=== PATIENT | female | born 1985 | race Caucasian/White ===

== ENCOUNTER 2018-12-09 16:32 | Emergency (ER) | payer BC, OTHER ==
[~2018-12-09] VITALS: Ht 160 cm; Wt 54.4 kg
[2018-12-09 16:35] VITALS: BP 142/96
--- NOTE | 2018-12-09 16:41 | NUR ---
PT BIBA ALS, AMBULATED TO BED 3
--- NOTE | 2018-12-09 17:00 | NUR ---
PT BIBA C/O GENERAL ABD PAIN 10/10 BURNING, NONRADIATING WORSENING OVER TWO WEEKS. +N/V/D. UNABLE TO KEEP FOOD DOWN FOR 2 WEEKS. URINE OBTAINED. PT STATES " I HAVNT BEEN ABLE TO SEE MY GASTRO IN 2 MONTHS AND IT HAS BEEN GETTING SO BAD". PT REPORTS N/V/D. RR EVEN AND UNLABORED, PT SEEMS ANXIOUS AND CRYING. ER MD MADE AWARE. SAFETY PRECAUTIONS IN PLACE. PT. REPORTS " THEIR HAS BEEN A LITTLE BLOOD IN MY STOOL". MOTHER IS AT BEDSIDE. GIVEN FENTANYL AND ZOFRAN EN ROUTE BY ALS CREW. SAFETY PRECAUTIONS IN PLACE. HX--CHROHNS/COLITIS, DEPRESSION/ANXIETY
[2018-12-09] MEDS ORDERED: NACL 0.9% 1,000 ML IV SCH (17:20)
[2018-12-09] MEDS ORDERED: MORPHINE SULFATE 4 MG/ML SYR IVP ONE (17:20)
[2018-12-09] MEDS ORDERED: ONDANSETRON 4 MG/2 ML VIAL IVP ONE (17:20)
[2018-12-09 17:33] LABS: APPEARANCE,URINE CLEAR (CLEAR); BILIRUBIN,URINE NEGATIVE (NEGATIVE); BLOOD, URINE TRACE-I (NEGATIVE); COLOR,URINE YELLOW (YELLOW); LEUKOCYTE ESTERASE ,URINE NEGATIVE (NEGATIVE); NITRITE, URINE NEGATIVE (NEGATIVE); UGLUCOSE NEGATIVE (NEGATIVE)
[2018-12-09 17:36] LABS: RBC,URINE 0-5 (RARE) /HPF (0-5); WBC,URINE 0-5 (RARE) /HPF (0-5)
[2018-12-09 17:48] LABS: BASOPHILS # (AUTO) 0.1 K/uL (0.00-0.22); BASOPHILS % (AUTO) 1.9 % (0.0-2.0); EOSINOPHILS # (AUTO) 0.1 K/uL (0-0.4); EOSINOPHILS % (AUTO) 1.3 % (0.0-4.0); HEMATOCRIT 42.2 % (36-48); HEMOGLOBIN 13.8 g/dL (12.0-16.0); LYMPHOCYTES # (AUTO) 1.2 K/uL (2.5-16.5); LYMPHOCYTES % (AUTO) 19.2 % (20.5-51.1); MEAN CORPUSCULAR HEMOGLOBIN 31 pg (27-31); MEAN CORPUSCULAR HGB CONC 33 g/dL (33-37); MEAN CORPUSCULAR VOLUME 93.2 fL (80-94); MONOCYTES # (AUTO) 0.1 K/uL (0.8-1.0); MONOCYTES % (AUTO) 1.7 % (1.7-9.3); NEUTROPHILS # (AUTO) 4.7 K/uL (1.8-7.7); NEUTROPHILS % (AUTO) 75.9 % (42.2-75.2); PLATELET COUNT (AUTO) 340 K/uL (140-450); RED BLOOD CELL COUNT(AUTO) 4.53 MIL/uL (4.20-5.40); RED CELL DISTRIBUTION WIDTH 13.8 % (11.6-13.7); WHITE BLOOD COUNT (AUTO) 6.1 K/uL (4.8-10.8)
--- NOTE | 2018-12-09 17:53 | NUR ---
PT. TAKEN TO CT SCAN VIA WHEELCHAIR AT THIS TIME
[2018-12-09 18:08] LABS: ALBUMIN 4.1 g/dL (3.4-5.0); ANION GAP 12.9 (8-16); CARBON DIOXIDE 27.6 mmol/L (21-32); CREATININE 0.6 mg/dL (0.6-1.3); POTASSIUM 3.5 mmol/L (3.5-5.1); TOTAL BILIRUBIN 0.4 mg/dL (0.0-1.0)
--- NOTE | 2018-12-09 18:16 | NUR ---
PT. STATES " THE MORPHINE DIDNT HELP ME WITH MY PAIN AT ALL, CAN I HAVE SOMETHING ELSE FOR PAIN ?" PT. ABLE TO SPEAK IN FULL AND COMPLETE SENTENCES, FLUSHED CHEEKS AND RELAXED TONE WITH SLIGHT FACIAL GRIMACING NOTED. ER MD BARON MADE AWARE.MD TO SEE PATIENT
[2018-12-09] MEDS ORDERED: fentaNYL 0.05 MG/ML VIAL IVP ONE (18:45)
--- NOTE | 2018-12-09 19:16 | NUR ---
Pt report given to SONAM KEITH . Transfer of care at this time.
[2018-12-09 19:56] VITALS: BP 128/82
--- NOTE | 2018-12-09 19:56 | NUR ---
Patient discharged with v/s stable. Written and verbal after care instructions given and explained. Patient alert, oriented and verbalized understanding of instructions. Ambulatory with steady gait. All questions addressed prior to discharge. ID band removed. Patient advised to follow up with PMD. Rx of reglan and sulfasalazine was given. Patient educated on indication of medication including possible reaction and side effects. Opportunity to ask questions provided and answered.
== END 2018-12-09 19:56 | disposition home or self-care (01) ==
LOC: MED 16:32
DX: R10.9 Unspecified abdominal pain (principal); F41.9 Anxiety disorder, unspecified; K50.90 Crohn's disease, unspecified, without complications
CPT/HCPCS: 36415; 74176; 80053; 81001; 81002; 81025; 83605; 83690; 85025; 87040; 96361; 96374; 96375; 99284; J2270; J2405; J3010; J7030

== ENCOUNTER 2021-09-28 17:50 | Emergency (ER) | payer BC, OTHER ==
[~2021-09-28] VITALS: Ht 162.6 cm; Wt 56.3 kg
[2021-09-28 18:12] VITALS: BP 130/90
--- NOTE | 2021-09-28 18:51 | NUR ---
urine in dirty utility
--- NOTE | 2021-09-28 19:15 | NUR ---
RECIEVED SHIFT REPORT FROM DAY SHIFT RN. PT LYING IN BED WITH EYES OPENED. REPORTS PAIN 7/10. ALL VS ARE STABLE AT THIS TIME. MD AT BEDSIDE. WILL CONTINUE TO MONITOR.
--- NOTE | 2021-09-28 19:16 | NUR ---
PT REPORTS HX OF 2 BACK SX, SPINAL STENOSIS, OSTEOPOROSIS, CHRONS, COLITIS, ADDISONS, HYPOTHYROID. PT STATES THAT SHE IS UNDER THE DIRECT CARE OF A ONCOLOGIST TO RULE OUT CANCER. PT REPORTS HX OF BLOOD CLOTS, PULMONARY EMBOLISM. PT REPORTS THAT TODAY SHE IS FEELING CHEST PAIN, N/V/D, REPORTS S/S HAS BEEN PRESENT X2 MONTHS WITH NO RELIEF. PT STATES THAT MORPHINE MAKES HER SICK TO HER STOMACH AND REQUESTED THAT THE MD GIVES HER PROMETHAZINE AND DILAUDID. PT STATES THAT "I USUALLY DON'T ASK THE DOCTOR FOR A SPECIFIC PRESCRIPTION BUT I REALLY WANT DILAUDID AND PROMETHAZINE FOR MY NAUSEA". PT REPORTS THAT SHE DOES SEE A PAIN SPECIALIST FOR "PAIN INJECTIONS" AND DENIES TAKING ANY PAIN MEDS AT HOME.
--- NOTE | 2021-09-28 19:19 | NUR ---
Dr. Beck is evaluating patient at bedside
[2021-09-28] MEDS: ONDANSETRON 4 MG/2 ML VIAL IVP ONE (19:45)
[2021-09-28] MEDS: HYDROmorphone PFS 2 MG/ML SYR IVP ONE ×3 (20:06→22:52)
[2021-09-28 20:25] LABS: BASOPHILS % (AUTO) 0.4 % (0.0-2.0); EOSINOPHILS % (AUTO) 0.2 % (0.0-4.0); HEMATOCRIT 28.9 % (36-48); HEMOGLOBIN 9.4 g/dL (12.0-16.0); LYMPHOCYTES # (AUTO) 1.6 K/uL (2.5-16.5); LYMPHOCYTES % (AUTO) 36.8 % (20.5-51.1); MEAN CORPUSCULAR HEMOGLOBIN 26 pg (27-31); MEAN CORPUSCULAR HGB CONC 33 g/dL (33-37); MEAN CORPUSCULAR VOLUME 80.5 fL (80-94); MONOCYTES # (AUTO) 0.3 K/uL (0.8-1.0); MONOCYTES % (AUTO) 5.9 % (1.7-9.3); NEUTROPHILS # (AUTO) 2.5 K/uL (1.8-7.7); NEUTROPHILS % (AUTO) 56.7 % (42.2-75.2); PLATELET COUNT (AUTO) 338 K/uL (140-450); RED BLOOD CELL COUNT(AUTO) 3.59 MIL/uL (4.20-5.40); RED CELL DISTRIBUTION WIDTH 17.9 % (11.6-13.7); WHITE BLOOD COUNT (AUTO) 4.4 K/uL (4.8-10.8)
[2021-09-28 20:44] LABS: MAGNESIUM 2.4 mg/dL (1.8-2.4); PHOSPHORUS 3.4 mg/dL (2.5-4.9)
--- NOTE | 2021-09-28 20:46 | NUR ---
PT REPORTS THAT HER NAUSEA IS STILL PRESENT. DENIES ANY VOMITING. PT STATES THAT "ZOFRAN IS NOT WORKING FOR ME". RN INQUIRED ABOUT PREVIOUS TREATMENTS THAT WORKED FOR N/V, PT REPLIED "PLEASE JUST GIVE ME PROMETHAZINE, IT IS THE ONLY THING THAT WORKS FOR ME". PT STATES "I ALSO NEED MORE PAIN MEDICATION, I AM STARTING TO FEEL MY PAIN AGAIN". MD NOTIFIED.
[2021-09-28 20:57] LABS: APPEARANCE,URINE CLEAR (CLEAR); BILIRUBIN,URINE NEGATIVE (NEGATIVE); BLOOD, URINE NEGATIVE (NEGATIVE); COLOR,URINE YELLOW (YELLOW); LEUKOCYTE ESTERASE ,URINE NEGATIVE (NEGATIVE); NITRITE, URINE NEGATIVE (NEGATIVE); UGLUCOSE NEGATIVE (NEGATIVE)
[2021-09-28] MEDS: PROMETHAZINE 25 MG/ML VIAL IVP ONE (20:59)
[2021-09-28 21:01] LABS: ALBUMIN 3.8 g/dL (3.4-5.0); ANION GAP 11.3 (8-16); CREATININE 0.6 mg/dL (0.6-1.3); POTASSIUM 3.3 mmol/L (3.5-5.1); TOTAL BILIRUBIN 0.3 mg/dL (0.0-1.0)
--- NOTE | 2021-09-28 21:01 | NUR ---
PT TO RADIOLOGY VIA WHEELCHAIR TRASPORTED BY FILM OR TAPE LIBRARIAN.
--- NOTE | 2021-09-28 21:01 | NUR ---
PT MEDICATED PER MD ORDERS.
--- NOTE | 2021-09-28 21:12 | NUR ---
PT RETURN FROM RADIOLOGY
[2021-09-28] MEDS: POTASSIUM CHLORIDE 10 MEQ TABER PO ONE (21:15)
--- NOTE | 2021-09-28 21:28 | NUR ---
PT BACK IN ROOM. HOOKED UP TO MONITORS.
[2021-09-28] MEDS ORDERED: ONDA-188 PO (21:43)
[2021-09-28] MEDS: NACL 0.9% 1,000 ML IV ONE (22:00)
[2021-09-28] MEDS ORDERED: POTASSIUM CHLORIDE 10 MEQ TABER PO ONE ×2 (22:47→22:49)
--- NOTE | 2021-09-28 22:58 | NUR ---
RN TO PT ROOM TO ADMINISTER K+ PO. PT TOOK ONE PILL AND REFUSED THE OTHER PILL DUE TO HER EXPERIENCING THROAT IRRITATION. PT STATES SHE WILL TAKE PO K+ AT HOME.
[2021-09-28 23:16] VITALS: BP 135/77
--- NOTE | 2021-09-28 23:21 | NUR ---
Patient discharged with v/s stable. Written and verbal after care instructions given and explained. Patient alert, oriented and verbalized understanding of instructions. Ambulatory with steady gait. All questions addressed prior to discharge. ID band removed. Patient advised to follow up with PMD. Rx of zofran given. Patient educated on indication of medication including possible reaction and side effects. Opportunity to ask questions provided and answered. pt instructed not to drive, RN escorted pt to car, drove pt home.
== END 2021-09-28 23:21 | disposition home or self-care (01) ==
LOC: MED 17:50
DX: R11.10 Vomiting, unspecified (principal); R19.7 Diarrhea, unspecified; R10.11 Right upper quadrant pain; E07.9 Disorder of thyroid, unspecified; Z98.890 Other specified postprocedural states; Z79.899 Other long term (current) drug therapy
CPT/HCPCS: 36415; 74021; 80053; 81003; 81025; 83735; 84100; 85025; 85610; 85730; 86886; 86900; 86901; 93005; 96361; 96374; 96375; 96376; 99285; J1170; J2405; J2550; J7030

== ENCOUNTER 2022-05-08 11:53 | Emergency (ER) | payer BC, OTHER ==
[~2022-05-08] VITALS: Ht 162.6 cm; Wt 56.7 kg
[~2022-05-08 11:53] MED LIST: ONDA-188 PO
[2022-05-08 12:00] VITALS: BP 134/83
--- NOTE | 2022-05-08 12:00 | NUR ---
36 Y/O FEMALE BIB SELF C/O OF PAIN, REDNESS AND AND WARMTH ON LEFT PERMACATH AREA. PER PT PERMACATH WAS PLACED IN A CLINIC ON 05/03/22 PREVIOUS PERMACATH ON THE RIGHT WAS INFECTED WITH ENTEROCOCCUS. PT IS RECEIVING ORAL CHEMO MERCAPTOPURINE AND REMICAIDE INFUSIONS. LAST INFUSION OF REMICAIDE 1 1/2 MONTHS AGO. PERMACATH HAS NOT BEEN USED. PT STATES FEVER AT HOME YESTERDAY 100.1, TEMP IN TRIAGE 98.1. ALLERGY: LYRICA, NSAIDS PMH: ADDISONS, CHRONS, HYPOTHYROID, OSTEOPOROSIS, ANKYLOSING SPONDYLOSIS
--- NOTE | 2022-05-08 12:35 | NUR ---
DR BARON AT BEDSIDE FOR EVAL
[2022-05-08] MEDS ORDERED: MORPHINE SULFATE 2 MG/ML SYR IVP ONE ×2 (12:50→16:20)
[2022-05-08] MEDS ORDERED: NACL 0.9% 1,000 ML IV SCH (12:50)
[2022-05-08] MEDS ORDERED: ONDANSETRON 4 MG/2 ML VIAL IVP ONE (12:50)
--- NOTE | 2022-05-08 13:19 | NUR ---
XRAY AT BEDSIDE
[2022-05-08 13:26] LABS: BASOPHILS % (AUTO) 0.3 % (0.0-2.0); EOSINOPHILS % (AUTO) 0.2 % (0.0-4.0); HEMATOCRIT 28.1 % (36-48); LYMPHOCYTES # (AUTO) 0.8 K/uL (2.5-16.5); LYMPHOCYTES % (AUTO) 23.6 % (20.5-51.1); MEAN CORPUSCULAR HEMOGLOBIN 25 pg (27-31); MEAN CORPUSCULAR HGB CONC 32 g/dL (33-37); MEAN CORPUSCULAR VOLUME 76.6 fL (80-94); MONOCYTES # (AUTO) 0.2 K/uL (0.8-1.0); MONOCYTES % (AUTO) 7.2 % (1.7-9.3); NEUTROPHILS # (AUTO) 2.3 K/uL (1.8-7.7); NEUTROPHILS % (AUTO) 68.7 % (42.2-75.2); PLATELET COUNT (AUTO) 278 K/uL (140-450); RED BLOOD CELL COUNT(AUTO) 3.67 MIL/uL (4.20-5.40); WHITE BLOOD COUNT (AUTO) 3.3 K/uL (4.8-10.8)
[2022-05-08] MEDS ORDERED: diphenhydrAMINE 50 MG/ML VIAL IVP ONE ×3 (13:45→20:40)
[2022-05-08 13:51] LABS: ALBUMIN 3.6 g/dL (3.4-5.0); ANION GAP 12.9 (8-16); CREATININE 0.6 mg/dL (0.6-1.3); POTASSIUM 3.9 mmol/L (3.5-5.1); TOTAL BILIRUBIN 0.2 mg/dL (0.0-1.0)
[2022-05-08 13:59] LABS: PROTHROMBIN TIME 10.2 secs (10.8-13.4)
[2022-05-08] MEDS ORDERED: PIPERACILLIN/TAZOBACTAM 3.375 GM in DEXTROSE 5% 50 ML IV ONE (14:15)
[2022-05-08 14:25] LABS: APPEARANCE,URINE CLEAR (CLEAR); BILIRUBIN,URINE NEGATIVE (NEGATIVE); BLOOD, URINE 3+ (NEGATIVE); COLOR,URINE YELLOW (YELLOW); LEUKOCYTE ESTERASE ,URINE NEGATIVE (NEGATIVE); NITRITE, URINE NEGATIVE (NEGATIVE); PH,URINE 6.5 (5.0-9.0); UGLUCOSE NEGATIVE (NEGATIVE)
[2022-05-08] MEDS ORDERED: MORPHINE SULFATE 4 MG/ML SYR IVP ONE ×2 (14:30→22:30)
[2022-05-08] MEDS ORDERED: PIPERACILLIN/TAZOBACTAM 3.375 GM VIAL IV ONE (14:42)
[2022-05-08 14:43] LABS: OTHER CASTS, URINE None Seen /LPF (None Seen); RBC,URINE 11-20 (MOD) /HPF (0-5); WBC,URINE 0-5 /HPF (0-5)
--- NOTE | 2022-05-08 15:26 | NUR ---
SWABS HANDED TO FERNANDA SORTING MACHINE OPERATOR
--- NOTE | 2022-05-08 15:36 | NUR ---
SPOKE TO [facility], NUMBER [phone] AND FAX NUMBER [phone] REGARDING PT CLINICALS, REFAXXED CLINICALS
[2022-05-08] MEDS ORDERED: MERC50TA PO (17:27)
[2022-05-08] MEDS ORDERED: DIAZ5TAB13 PO (17:27)
[2022-05-08] MEDS ORDERED: APIX5TAB PO (17:27)
[2022-05-08] MEDS ORDERED: HYDR20TA PO (18:54)
--- NOTE | 2022-05-08 18:54 | NUR ---
INFORMED DR VALLEJO OF PT CONTINUED PAIN EVEN WITH MORPHINE, PT REQUESTING DILAUDID IVP
--- NOTE | 2022-05-08 19:17 | NUR ---
Pt report given to ROCKY MASTERS. Transfer of care at this time.
--- NOTE | 2022-05-08 19:30 | NUR ---
RECEIVED PT AWAKE, ALERT, AND VERY TEARFUL. C/O ONGOING PAIN, PRIMARILY TO LEFT UPPER CHEST AT LAURA-CATH SITE. PT STATES LONG MEDICAL HISTORY. PAIN IS RATED 10/10.
[2022-05-08] MEDS ORDERED: HYDROmorphone PFS 2 MG/ML SYR IM ONE (19:45)
--- NOTE | 2022-05-08 22:20 | NUR ---
SPOKE WITH TALENT ADVISOR. PT APPROVED FOR TRANSFER/ ADMISSION TO [facility]. PT NOT WANTING TO TRANSFER HERE, AND WILL BE CONSIDERING SIGNING AMA
[2022-05-08 23:07] VITALS: BP 128/78
--- NOTE | 2022-05-08 23:07 | NUR ---
PT IS NOT ACCEPTING OF TRANSFER. SIGNED OUT AMA. RISKS EXPLAINED, PT EXPRESSES UNDERSTANDING
== END 2022-05-08 23:07 | disposition home or self-care (01) ==
LOC: MED 11:53
DX: K50.90 Crohn's disease, unspecified, without complications (principal); Z20.822 Contact with and (suspected) exposure to COVID-19; M45.9 Ankylosing spondylitis of unspecified sites in spine; E03.9 Hypothyroidism, unspecified; M81.0 Age-related osteoporosis without current pathological fracture; E27.1 Primary adrenocortical insufficiency; K21.9 Gastro-esophageal reflux disease without esophagitis; Z79.899 Other long term (current) drug therapy; Z88.8 Allergy status to other drugs, medicaments and biological substances; Z98.890 Other specified postprocedural states; Z85.9 Personal history of malignant neoplasm, unspecified
CPT/HCPCS: 36415; 71045; 80053; 81001; 81025; 83605; 85025; 85610; 85730; 87040; 87086; 87426; 93005; 96361; 96365; 96372; 96375; 96376; 99285; J1170; J1200; J2270; J2405; J2543; J7030; Q0092

== ENCOUNTER 2022-09-06 17:24 | Emergency (ER) | payer BC, OTHER ==
[~2022-09-06] VITALS: Ht 162.6 cm; Wt 58.1 kg
[~2022-09-06 17:24] MED LIST changes: +APIX5TAB PO; +DIAZ5TAB13 PO; +HYDR20TA PO; +MERC50TA PO
[2022-09-06 17:32] VITALS: BP 125/96
--- NOTE | 2022-09-06 18:08 | NUR ---
37 Y/O FEMALE BIB SELF C/O NAUSEA, ITCHINESS, HEADACHE, [id number], PER PT SHE HAD "AN INCREASED AMOUNT OF CHEMO YESTERDAY AT 0900H", STATES THAT HER BP REACHED 70 SYSTOLIC AT HOME. PORTACATH AT THE LEFT UPPER CHEST, PER PT INSERTED YESTERDAY. ALLERGY: NSAIDS, PREGABALIN PMH: ADDISONS, CHRONS, HYPOTHYROID, OSTEOPOROSIS, ANKYLOSING SPONDYLOSIS
[2022-09-06 18:12] LABS: BASOPHILS % (AUTO) 0.5 % (0.0-2.0); EOSINOPHILS # (AUTO) 0.3 K/uL (0-0.4); EOSINOPHILS % (AUTO) 5.6 % (0.0-4.0); HEMATOCRIT 31.8 % (36-48); HEMOGLOBIN 10.4 g/dL (12.0-16.0); LYMPHOCYTES # (AUTO) 1.8 K/uL (2.5-16.5); LYMPHOCYTES % (AUTO) 38.4 % (20.5-51.1); MEAN CORPUSCULAR HEMOGLOBIN 25 pg (27-31); MEAN CORPUSCULAR HGB CONC 33 g/dL (33-37); MEAN CORPUSCULAR VOLUME 76.6 fL (80-94); MONOCYTES # (AUTO) 0.4 K/uL (0.8-1.0); MONOCYTES % (AUTO) 7.4 % (1.7-9.3); NEUTROPHILS # (AUTO) 2.3 K/uL (1.8-7.7); NEUTROPHILS % (AUTO) 48.1 % (42.2-75.2); PLATELET COUNT (AUTO) 327 K/uL (140-450); RED BLOOD CELL COUNT(AUTO) 4.15 MIL/uL (4.20-5.40); RED CELL DISTRIBUTION WIDTH 22.8 % (11.6-13.7); WHITE BLOOD COUNT (AUTO) 4.8 K/uL (4.8-10.8)
[2022-09-06] MEDS ORDERED: MORPHINE SULFATE 4 MG/ML SYR IVP ONE (18:15)
[2022-09-06 18:25] LABS: ALBUMIN 3.6 g/dL (3.4-5.0); ANION GAP 11.2 (8-16); CARBON DIOXIDE 25.2 mmol/L (21-32); CREATININE 0.6 mg/dL (0.6-1.3); POTASSIUM 4.4 mmol/L (3.5-5.1); TOTAL BILIRUBIN 0.2 mg/dL (0.0-1.0)
[2022-09-06] MEDS ORDERED: HYDROmorphone PFS 2 MG/ML SYR IVP ONE ×2 (18:35→23:00)
[2022-09-06] MEDS ORDERED: diphenhydrAMINE 50 MG/ML VIAL IVP ONE (18:50)
[2022-09-06] MEDS ORDERED: NACL 0.9% 1,000 ML IV ONE (18:55)
--- NOTE | 2022-09-06 19:17 | NUR ---
Pt report given to ANITRA MASTERS. Transfer of care at this time.
--- NOTE | 2022-09-06 19:30 | NUR ---
ASSUMED CARE OF PT AT THIS TIME. PT IN POSITION OF COMFORT. REQUESTING NAUSEA MEDICATION. DR. CHATMAN AT BEDSIDE TO DISCUSS FURTHER POC. PT WANTING TO WAIT FOR CT SCAN HERE CT SCAN DOWN UNTIL 2300. WILL FOLLOW THROUGH WITH ANY FURTHER ORDERS. WILL CONTINUE TO MONITOR.
--- NOTE | 2022-09-06 19:48 | NUR ---
per paulino murrieta, pt can wait until [address] with angio, when ct comes back up. pt is aware and is ok with waiting.
--- NOTE | 2022-09-06 20:08 | NUR ---
PATIENT STATED SHE WAS FEELING NAUSEATED. NO EPISODE OF VOMIT. ERMD AWARE.
[2022-09-06] MEDS ORDERED: PROCHLORPERAZINE 10 MG/2 ML VIAL IVP ONE (20:15)
--- NOTE | 2022-09-06 20:30 | NUR ---
PT UP AND AMBULATES TO RESTROOM. URINE PROVIDED AND SENT. PT REQUESTING PAIN MEDICATION. ERMD AWARE.
[2022-09-06 21:05] LABS: APPEARANCE,URINE SL CLOUDY (CLEAR); BILIRUBIN,URINE NEGATIVE (NEGATIVE); BLOOD, URINE 3+ (NEGATIVE); COLOR,URINE YELLOW (YELLOW); LEUKOCYTE ESTERASE ,URINE NEGATIVE (NEGATIVE); NITRITE, URINE NEGATIVE (NEGATIVE); UGLUCOSE NEGATIVE (NEGATIVE)
[2022-09-06 21:21] LABS: RBC,URINE 0-5 /HPF (0-5); WBC,URINE 0-5 /HPF (0-5)
[2022-09-06 21:24] LABS: BARBITURATE, URINE NEGATIVE ng/ml (NEG <=200); BENZODIAZEPINE, URINE POSITIVE ng/mL (NEG <=200); CANNABINOID, URINE NEGATIVE ng/mL (NEG <=50); COCAINE, URINE NEGATIVE ng/mL (NEG <=300); OPIATE, URINE POSITIVE ng/mL (NEG <=2000); PHENCYCLIDINE SCREEN,URINE NEGATIVE ng/mL (NEG <=25)
--- NOTE | 2022-09-06 22:25 | NUR ---
PT REQUESTING PAIN MEDICATION. UPDATED PT ON POC WITH FULL RETURNED VERBAL UNDERSTANDING. AWAITING ARRIVING DOCTOR FOR ORDERS.
--- NOTE | 2022-09-06 22:25 | NUR ---
pt to ct via quan
--- NOTE | 2022-09-06 23:00 | NUR ---
Britney knutson in EDM - 09/07/22 at 0038 by [id number] PT REQUESTING PAIN MEDICATION. UPDATED PT ON POC WITH FULL RETURNED VERBAL UNDERSTANDING. AWAITING ARRIVING DOCTOR FOR ORDERS.
--- NOTE | 2022-09-07 00:39 | NUR ---
AWAITING RESULTS. PT AWARE. WILL CONTINUE TO MONITOR PAIN/COMFORT.
[2022-09-07] MEDS ORDERED: TAM75 PO (01:43)
[2022-09-07] MEDS ORDERED: ACET-10509 PO (01:43)
[2022-09-07 01:45] VITALS: BP 118/78
--- NOTE | 2022-09-07 01:52 | NUR ---
Patient discharged with v/s stable. Written and verbal after care instructions given and explained. Patient alert, oriented and verbalized understanding of instructions. Wheel Chair Assisted with to car. All questions addressed prior to discharge. ID band removed. Patient advised to follow up with PMD. Rx of TAMIFLU, TYLENOL given. Patient educated on indication of medication including possible reaction and side effects. Opportunity to ask questions provided and answered.
--- NOTE | 2022-09-10 15:02 | NUR ---
LATE ENTRY- IV NS DISCONTINUED AT 0152.
== END 2022-09-07 01:45 | disposition home or self-care (01) ==
LOC: MED 17:24
DX: J10.1 Influenza due to other identified influenza virus with other respiratory manifestations (principal); R79.1 Abnormal coagulation profile; E27.1 Primary adrenocortical insufficiency; E86.0 Dehydration; I26.99 Other pulmonary embolism without acute cor pulmonale; Z20.822 Contact with and (suspected) exposure to COVID-19; K21.9 Gastro-esophageal reflux disease without esophagitis; E03.9 Hypothyroidism, unspecified; Z85.89 Personal history of malignant neoplasm of other organs and systems; Z79.899 Other long term (current) drug therapy; Z79.01 Long term (current) use of anticoagulants; Z88.6 Allergy status to analgesic agent; Z88.8 Allergy status to other drugs, medicaments and biological substances
CPT/HCPCS: 36415; 71045; 71275; 80053; 80305; 81001; 81025; 82533; 83880; 84484; 85025; 85379; 87426; 87804; 93005; 96361; 96374; 96375; 99285; J0780; J1170; J1200; J7030; Q0092; Q9967

== ENCOUNTER 2022-09-20 10:10 | Observation (INO) | payer BC, OTHER ==
[~2022-09-20] VITALS: Ht 162.6 cm; Wt 56.7 kg
[~2022-09-20 10:10] MED LIST changes: +ACET-10509 PO; +TAM75 PO
[2022-09-20 10:16] VITALS: BP 135/86
--- NOTE | 2022-09-20 10:29 | NUR ---
PT AMB TO BED 8.
--- NOTE | 2022-09-20 10:30 | NUR ---
DR RODRIGUEZ AT BEDSIDE.
[2022-09-20] MEDS ORDERED: NACL 0.9% 1,000 ML IV ONE (10:35)
[2022-09-20] MEDS ORDERED: ACETAMINOPHEN EXTRA STRENGTH 500 MG TAB PO ONE (10:35)
[2022-09-20] MEDS ORDERED: ONDANSETRON 4 MG/2 ML VIAL IVP ONE ×3 (10:35→16:10)
--- NOTE | 2022-09-20 10:37 | NUR ---
LAB AT BEDSIDE.
--- NOTE | 2022-09-20 11:00 | NUR ---
37 Y/O F BIB SELF C/O HEMOPTYSIS, COUGH, N/V/D, FEVER, , CHEST PAIN , CHILLS, BODY PAIN 10/10 , CONGESTION X 5 DAYS. FLU+ 2 WEEKS AGO. COVID TESTED NEGATIVE 2 DAYS AGO. PMH: PULMONARY EMBOLISM X 3TIMES, GETACHEW'S DISEASE, CROHN'S DISEASE, TUBALIGATION
--- NOTE | 2022-09-20 11:07 | NUR ---
X-RAY AT BEDSIDE.
[2022-09-20] MEDS ORDERED: HYDROmorphone PFS 2 MG/ML SYR IVP ONE ×2 (11:10→12:55)
[2022-09-20 11:33] LABS: BASOPHILS % (AUTO) 0.5 % (0.0-2.0); EOSINOPHILS # (AUTO) 0.2 K/uL (0-0.4); EOSINOPHILS % (AUTO) 2.9 % (0.0-4.0); HEMATOCRIT 30.3 % (36-48); HEMOGLOBIN 9.9 g/dL (12.0-16.0); LYMPHOCYTES # (AUTO) 0.8 K/uL (2.5-16.5); LYMPHOCYTES % (AUTO) 14.7 % (20.5-51.1); MEAN CORPUSCULAR HEMOGLOBIN 25 pg (27-31); MEAN CORPUSCULAR HGB CONC 33 g/dL (33-37); MEAN CORPUSCULAR VOLUME 77.6 fL (80-94); MONOCYTES # (AUTO) 0.4 K/uL (0.8-1.0); MONOCYTES % (AUTO) 7.2 % (1.7-9.3); NEUTROPHILS # (AUTO) 4.2 K/uL (1.8-7.7); NEUTROPHILS % (AUTO) 74.7 % (42.2-75.2); PLATELET COUNT (AUTO) 358 K/uL (140-450); RED CELL DISTRIBUTION WIDTH 22.8 % (11.6-13.7); WHITE BLOOD COUNT (AUTO) 5.6 K/uL (4.8-10.8)
[2022-09-20 11:50] LABS: APPEARANCE,URINE CLEAR (CLEAR); BILIRUBIN,URINE NEGATIVE (NEGATIVE); BLOOD, URINE NEGATIVE (NEGATIVE); COLOR,URINE YELLOW (YELLOW); LEUKOCYTE ESTERASE ,URINE 3+ (NEGATIVE); NITRITE, URINE POSITIVE (NEGATIVE); UGLUCOSE NEGATIVE (NEGATIVE)
[2022-09-20 11:51] LABS: ALBUMIN 3.3 g/dL (3.4-5.0); ANION GAP 14.9 (8-16); CARBON DIOXIDE 24.8 mmol/L (21-32); CREATININE 0.7 mg/dL (0.6-1.3); POTASSIUM 3.7 mmol/L (3.5-5.1); TOTAL BILIRUBIN 0.1 mg/dL (0.0-1.0)
[2022-09-20] MEDS ORDERED: cefTRIAXone 1,000 MG VIAL ONE (13:23)
[2022-09-20] MEDS ORDERED: AMPH30TA2 PO (13:47)
[2022-09-20] MEDS ORDERED: SERT100T PO (13:47)
--- NOTE | 2022-09-20 15:07 | NUR ---
PT AMBULATED TO THE BATHROOM.
[2022-09-20] MEDS ORDERED: VANCOMYCIN 1,000 MG in DEXTROSE 5% 250 ML IV ONE (15:20)
[2022-09-20] MEDS ORDERED: diphenhydrAMINE 50 MG/ML VIAL IVP ONE (16:10)
--- NOTE | 2022-09-20 18:03 | NUR ---
PT ABULATED TO THE BATHROOM.
[2022-09-20 18:05] VITALS: BP 138/90
[2022-09-20] MEDS ORDERED: diazePAM 5 MG TAB PO PRN (18:20)
[2022-09-20] MEDS ORDERED: MORPHINE SULFATE 2 MG/ML SYR IVP PRN (18:20)
[2022-09-20] MEDS ORDERED: NACL 0.9% 1,000 ML IV SCH (18:20)
[2022-09-20] MEDS ORDERED: ACETAMINOPHEN 325 MG TAB PO PRN (18:20)
[2022-09-20] MEDS ORDERED: ONDANSETRON 4 MG/2 ML VIAL IVP PRN (18:20)
[2022-09-20] MEDS ORDERED: HYDROcodone/APAP 5/325 MG 1 TAB TAB PO PRN (18:20)
--- NOTE | 2022-09-20 19:19 | NUR ---
GAVE REPORT TO FITZ RN.
--- NOTE | 2022-09-20 19:28 | NUR ---
Pt in bed semi fowlers. AAOx4 & GCS15. Pt attached to NS running through port a cath- no swelling, no pain, and no infiltration noted at the site. No s/s of distress noted & VSS WNL. C/O 07/23 pain- "I haven't received pain medication since 1pm." Attached to the rn cardiac, and safety measures are in place.
--- NOTE | 2022-09-20 19:56 | NUR ---
Pt c/o pain 07/23. reports, "they havent given me pain medications since 1pm and no doctor has spoken to me. I can just go home with pain medication and antibiotics, I dont know why I'm being admited like this." Assured pt that a doctor will speak with pt and will check pt orders to give pain medications.
[2022-09-20] MEDS ORDERED: APIXABAN 2.5 MG TAB PO SCH (21:00)
[2022-09-20] MEDS ORDERED: CRUSHER, PILL MC ONE (21:10)
--- NOTE | 2022-09-20 21:22 | NUR ---
paged out for admitting doctor.
--- NOTE | 2022-09-20 21:29 | NUR ---
Dr. Andrews called back and reported patient about pain. Per Dr. Andrews give 30mg Toradol IVP Q6hr PRN. Read back order done.
--- NOTE | 2022-09-20 21:57 | NUR ---
Patient does not wish to proceed with medical care recommended by Juliana GOODWIN. Patient given information related to possible complications, up to and including , which could occur as a result of leaving hospital at this time. Patient verbalizes understanding of risks involved leaving against medical advice. Patient refused to sign AMA form as patient claims "I will talk to my insurance about this because it's ridiculous to send me home without pain medications." Patient also left with port in place and per patient, "I came with the port."
--- NOTE | 2022-09-21 01:13 | NUR ---
spoke with Dr. Andrews about pt going AMA
[2022-09-21] MEDS ORDERED: HYDROCORTISONE 10 MG TAB PO SCH (09:00)
[2022-09-21] MEDS ORDERED: SERTRALINE 50 MG TAB PO SCH (09:00)
== END 2022-09-20 21:57 | disposition left against medical advice (07) ==
LOC: MED 10:10 → MMU 18:26
PROVIDERS: ADMIT Internal Medicine; ATTEND Internal Medicine
DX: N12 Tubulo-interstitial nephritis, not specified as acute or chronic (principal); Z20.822 Contact with and (suspected) exposure to COVID-19; J06.9 Acute upper respiratory infection, unspecified; K50.90 Crohn's disease, unspecified, without complications; E03.9 Hypothyroidism, unspecified; M45.9 Ankylosing spondylitis of unspecified sites in spine; E27.1 Primary adrenocortical insufficiency; K21.9 Gastro-esophageal reflux disease without esophagitis; Z86.711 Personal history of pulmonary embolism; Z79.899 Other long term (current) drug therapy
CPT/HCPCS: 36415; 71045; 71275; 80053; 81001; 83605; 83690; 84484; 85025; 85379; 87040; 87086; 87426; 87804; 93005; 96361; 96365; 96375; 96376; 99285; G0378; J0696; J1170; J1200; J2270; J2405; Q0092; Q9967; J7060

== ENCOUNTER 2023-06-13 09:46 | Emergency (ER) | payer OTHER ==
[~2023-06-13] VITALS: Ht 162.6 cm; Wt 49.6 kg
[~2023-06-13 09:46] MED LIST changes: +AMPH30TA2 PO; +SERT100T PO
[2023-06-13 09:52] VITALS: BP 123/67; PULSE 106; RESP 22; TEMP 97.7; O2SAT 100
[2023-06-13 10:30] VITALS: O2SAT 100
[2023-06-13] MEDS ORDERED: HYDROmorphone PFS 2 MG/ML SYR IVP ONE ×2 (10:40→12:30)
[2023-06-13] MEDS ORDERED: ONDANSETRON 4 MG/2 ML VIAL IVP ONE (10:40)
[2023-06-13 10:51] LABS: APPEARANCE,URINE CLEAR (CLEAR); BILIRUBIN,URINE NEGATIVE (NEGATIVE); BLOOD, URINE TRACE-I (NEGATIVE); COLOR,URINE YELLOW (YELLOW); LEUKOCYTE ESTERASE ,URINE 2+ (NEGATIVE); NITRITE, URINE NEGATIVE (NEGATIVE); PH,URINE 5.5 (5.0-9.0); PROTEIN,URINE NEGATIVE (NEGATIVE); UGLUCOSE NEGATIVE (NEGATIVE); UROBILINOGEN,URINE 0.2 EU/dL (0.2 - 1)
[2023-06-13 10:57] LABS: BASOPHILS % (AUTO) 0.3 % (0.0-2.0); EOSINOPHILS % (AUTO) 0.3 % (0.0-4.0); HEMOGLOBIN 11.5 g/dL (12.0-16.0); LYMPHOCYTES # (AUTO) 0.7 K/uL (2.5-16.5); LYMPHOCYTES % (AUTO) 19.2 % (20.5-51.1); MEAN CORPUSCULAR HEMOGLOBIN 29 pg (27-31); MEAN CORPUSCULAR HGB CONC 33 g/dL (33-37); MEAN CORPUSCULAR VOLUME 86.7 fL (80-94); MONOCYTES # (AUTO) 0.3 K/uL (0.8-1.0); MONOCYTES % (AUTO) 6.8 % (1.7-9.3); NEUTROPHILS # (AUTO) 2.8 K/uL (1.8-7.7); NEUTROPHILS % (AUTO) 73.4 % (42.2-75.2); PLATELET COUNT (AUTO) 247 K/uL (140-450); RED BLOOD CELL COUNT(AUTO) 4.04 MIL/uL (4.20-5.40); RED CELL DISTRIBUTION WIDTH 17.4 % (11.6-13.7); WHITE BLOOD COUNT (AUTO) 3.8 K/uL (4.8-10.8)
[2023-06-13 10:59] LABS: BACTERIA,URINE 2+ /HPF (None Seen); RBC,URINE 0-5 /HPF (0-5); SQUAMOUS EPITHELIAL CELL,UR >100 /LPF (0-3 (FEW))
[2023-06-13] MEDS: NACL 0.9% 1,000 ML IV SCH ×2 (10:59→11:39)
[2023-06-13] MEDS ORDERED: diphenhydrAMINE 50 MG/ML VIAL IVP ONE (11:00)
[2023-06-13 11:08] LABS: FLU A ANTIGEN negative (NEGATIVE); FLU B ANTIGEN NEGATIVE (NEGATIVE)
[2023-06-13 11:33] LABS: ALANINE AMINOTRANSFERASE 21 U/L (12-78); ALBUMIN 4.1 g/dL (3.4-5.0); ALKALINE PHOSPHATASE 81 U/L (50-136); ANION GAP 15.1 (8-16); ASPARTATE AMINOTRANSFERASE 20 U/L (15-37); CALCIUM 9.2 mg/dL (8.5-10.1); CARBON DIOXIDE 21.7 mmol/L (21-32); CHLORIDE 103 mmol/L (98-107); CREATININE 0.8 mg/dL (0.6-1.3); GFR ARICAN-AMERICAN 103 mL/min (>90); GFR NON ARICAN-AMERICAN 85 mL/min (>90); GLUCOSE 108 mg/dL (74-106); LIPASE 451 U/L (73-393); POTASSIUM 3.8 mmol/L (3.5-5.1); SODIUM SERUM 136 mmol/L (136-145); TOTAL BILIRUBIN 0.2 mg/dL (0.0-1.0); TOTAL PROTEIN, SERUM 8.9 g/dL (6.4-8.2); UREA NITROGEN, BLOOD 12 mg/dL (7-18)
[2023-06-13 12:50] VITALS: O2SAT 100
[2023-06-13] MEDS ORDERED: CEPH-588 PO (13:11)
[2023-06-13] MEDS ORDERED: ACET-8905 PO (13:11)
[2023-06-13] MEDS ORDERED: ONDA-188 SL (13:11)
[2023-06-13 13:13] VITALS: BP 123/67; PULSE 67; RESP 11; TEMP 99.4
== END 2023-06-13 13:13 | disposition home or self-care (01) ==
LOC: MED 09:46
DX: N30.01 Acute cystitis with hematuria (principal); K50.90 Crohn's disease, unspecified, without complications; K21.9 Gastro-esophageal reflux disease without esophagitis; E03.9 Hypothyroidism, unspecified; Z79.899 Other long term (current) drug therapy; Z88.8 Allergy status to other drugs, medicaments and biological substances; Z85.9 Personal history of malignant neoplasm, unspecified
CPT/HCPCS: 36415; 74177; 80053; 81001; 81025; 83690; 84484; 85025; 87086; 87426; 87804; 93005; 96365; 96368; 96375; 99291; J1170; J1200; J2405; J7030; Q9967

== ENCOUNTER 2024-01-26 14:21 | Emergency (ER) | payer OTHER ==
[~2024-01-26] VITALS: Ht 154.9 cm; Wt 49.9 kg
[~2024-01-26 14:21] MED LIST changes: +ACET-8905 PO; +CEPH-588 PO; +ONDA-188 SL
[2024-01-26 14:37] VITALS: BP 96/55; PULSE 131; RESP 16; TEMP 97.5; O2SAT 97
[2024-01-26] MEDS: ONDANSETRON 4 MG/2 ML VIAL IVP ONE (15:25)
[2024-01-26] MEDS: NACL 0.9% 1,000 ML IV ONE (15:28)
[2024-01-26] MEDS: MORPHINE SULFATE 4 MG/ML SYR IVP ONE (15:28)
[2024-01-26] MEDS ORDERED: ONDANSETRON 4 MG/2 ML VIAL IVP ONE (16:05)
[2024-01-26] MEDS ORDERED: MORPHINE SULFATE 4 MG/ML SYR IVP ONE (16:05)
[2024-01-26] MEDS: PROCHLORPERAZINE 10 MG/2 ML VIAL IVP ONE (16:25)
[2024-01-26 16:26] LABS: APPEARANCE,URINE CLEAR (CLEAR); BILIRUBIN,URINE NEGATIVE (NEGATIVE); BLOOD, URINE TRACE-I (NEGATIVE); COLOR,URINE YELLOW (YELLOW); LEUKOCYTE ESTERASE ,URINE NEGATIVE (NEGATIVE); NITRITE, URINE NEGATIVE (NEGATIVE); PH,URINE 5.5 (5.0-9.0); PROTEIN,URINE NEGATIVE (NEGATIVE); UGLUCOSE NEGATIVE (NEGATIVE); UROBILINOGEN,URINE 0.2 EU/dL (0.2 - 1)
[2024-01-26] MEDS: diphenhydrAMINE 50 MG/ML VIAL IVP ONE (16:29)
[2024-01-26 16:39] LABS: BACTERIA,URINE FEW /HPF (None Seen); RBC,URINE 0-5 /HPF (0-5); SQUAMOUS EPITHELIAL CELL,UR 4-10 (MOD) /LPF (0-3 (FEW)); WBC,URINE NONE SEEN /HPF (0-5)
[2024-01-26 16:40] LABS: CALCIUM OXALATE CRYSTALS,UR 0-10 /HPF (None Seen)
[2024-01-26] MEDS ORDERED: TOP25 PO (17:00)
[2024-01-26] MEDS ORDERED: ONDA8TAB87 PO (17:05)
[2024-01-26 17:28] VITALS: BP 122/69; PULSE 78; RESP 12; TEMP 97.5; O2SAT 100
== END 2024-01-26 17:28 | disposition home or self-care (01) ==
LOC: MED 14:21
DX: R51.9 Headache, unspecified (principal); R11.2 Nausea with vomiting, unspecified; M54.2 Cervicalgia; K21.9 Gastro-esophageal reflux disease without esophagitis; E03.9 Hypothyroidism, unspecified; Z98.890 Other specified postprocedural states; Z79.899 Other long term (current) drug therapy; Z79.01 Long term (current) use of anticoagulants; Z88.8 Allergy status to other drugs, medicaments and biological substances; Z88.6 Allergy status to analgesic agent; Z88.1 Allergy status to other antibiotic agents
CPT/HCPCS: 70450; 72125; 72131; 81001; 81025; 96361; 96374; 96375; 99285; J0780; J1200; J2270; J2405; J7030

== ENCOUNTER 2024-02-05 18:12 | Emergency (ER) | payer OTHER ==
[~2024-02-05] VITALS: Ht 162.6 cm; Wt 49.0 kg
[~2024-02-05 18:12] MED LIST changes: +ONDA8TAB87 PO; +TOP25 PO
[2024-02-05 18:30] VITALS: BP 94/68; PULSE 107; RESP 18; TEMP 98.1; O2SAT 100
[2024-02-05 19:14] LABS: BILIRUBIN,URINE 1+ (NEGATIVE); BLOOD, URINE NEGATIVE (NEGATIVE); COLOR,URINE YELLOW (YELLOW); LEUKOCYTE ESTERASE ,URINE 1+ (NEGATIVE); NITRITE, URINE NEGATIVE (NEGATIVE); PROTEIN,URINE NEGATIVE (NEGATIVE); UGLUCOSE NEGATIVE (NEGATIVE); UROBILINOGEN,URINE 0.2 EU/dL (0.2 - 1)
[2024-02-05 19:23] LABS: BASOPHILS % (AUTO) 0.5 % (0.0-2.0); EOSINOPHILS % (AUTO) 0.2 % (0.0-4.0); HEMATOCRIT 38.7 % (36-48); HEMOGLOBIN 13.6 g/dL (12.0-16.0); LYMPHOCYTES # (AUTO) 2.2 K/uL (2.5-16.5); LYMPHOCYTES % (AUTO) 36.5 % (20.5-51.1); MEAN CORPUSCULAR HEMOGLOBIN 32 pg (27-31); MEAN CORPUSCULAR HGB CONC 35 g/dL (33-37); MEAN CORPUSCULAR VOLUME 91.4 fL (80-94); MONOCYTES # (AUTO) 0.3 K/uL (0.8-1.0); MONOCYTES % (AUTO) 5.6 % (1.7-9.3); NEUTROPHILS # (AUTO) 3.4 K/uL (1.8-7.7); NEUTROPHILS % (AUTO) 57.2 % (42.2-75.2); PLATELET COUNT (AUTO) 534 K/uL (140-450); RED BLOOD CELL COUNT(AUTO) 4.23 MIL/uL (4.20-5.40); RED CELL DISTRIBUTION WIDTH 14.7 % (11.6-13.7); WHITE BLOOD COUNT (AUTO) 5.9 K/uL (4.8-10.8)
[2024-02-05 19:23] LABS: APPEARANCE,URINE SLIGHTLY HAZY (CLEAR)
[2024-02-05 19:33] LABS: ICTOTEST POSITIVE (NEGATIVE)
[2024-02-05 19:34] LABS: BACTERIA,URINE 1+ /HPF (None Seen); MUCUS,URINE None Seen /LPF (None Seen); RBC,URINE 0 /HPF (0-5); SQUAMOUS EPITHELIAL CELL,UR 0-3 (FEW) /LPF (0-3 (FEW))
[2024-02-05] MEDS: NACL 0.9% 1,000 ML IV ONE (19:38)
[2024-02-05 19:41] LABS: ALBUMIN 4.1 g/dL (3.4-5.0); TOTAL BILIRUBIN 0.5 mg/dL (0.0-1.0); TOTAL PROTEIN, SERUM 10.1 g/dL (6.4-8.2)
[2024-02-05] MEDS: FAMOTIDINE 20 MG/2 ML VIAL IVP ONE (19:43)
[2024-02-05] MEDS: ONDANSETRON 4 MG/2 ML VIAL IVP ONE (19:44)
[2024-02-05] MEDS ORDERED: ONDANSETRON 4 MG/2 ML VIAL ONE (20:14)
[2024-02-05] MEDS: MORPHINE SULFATE 4 MG/ML SYR IVP ONE (20:18)
[2024-02-05 20:25] LABS: ANION GAP 13.8 (8-16); CALCIUM 8.3 mg/dL (8.5-10.1); CARBON DIOXIDE 22.2 mmol/L (21-32); CREATININE 0.7 mg/dL (0.6-1.3)
[2024-02-05 20:27] LABS: BILIRUBIN,DIRECT 0.1 mg/dL (0.0-0.3)
[2024-02-05 21:20] VITALS: BP 112/71; PULSE 88; RESP 16; TEMP 98; O2SAT 100
== END 2024-02-05 21:20 | disposition home or self-care (01) ==
LOC: MED 18:12
DX: K50.90 Crohn's disease, unspecified, without complications (principal); N39.0 Urinary tract infection, site not specified; R19.7 Diarrhea, unspecified; E86.0 Dehydration; K21.9 Gastro-esophageal reflux disease without esophagitis; E03.9 Hypothyroidism, unspecified; N28.9 Disorder of kidney and ureter, unspecified; Z79.1 Long term (current) use of non-steroidal anti-inflammatories (NSAID); Z88.8 Allergy status to other drugs, medicaments and biological substances; Z79.899 Other long term (current) drug therapy
CPT/HCPCS: 36415; 80048; 80076; 81001; 81025; 82550; 83690; 84484; 85025; 87086; 93005; 96361; 96374; 96375; 99284; J2270; J2405; J3490; J7030

== ENCOUNTER 2024-03-10 16:59 | Emergency (ER) | payer OTHER ==
[~2024-03-10] VITALS: Ht 162.6 cm; Wt 47.2 kg
[~2024-03-10 16:59] MED LIST changes: -CEPH-588 PO; +PRED5TAB7 PO; -TAM75 PO
[2024-03-10 17:07] VITALS: BP 138/74; PULSE 104; RESP 20; TEMP 97.5; O2SAT 100
[2024-03-10 17:16] VITALS: TEMP 97.5
[2024-03-10] MEDS ORDERED: AZIT250T4 PO (19:46)
[2024-03-10 19:47] VITALS: BP 102/63; PULSE 90; RESP 18; O2SAT 99
== END 2024-03-10 19:52 | disposition home or self-care (01) ==
LOC: MED 16:59
DX: J20.9 Acute bronchitis, unspecified (principal); E03.9 Hypothyroidism, unspecified; K21.9 Gastro-esophageal reflux disease without esophagitis; I25.10 Atherosclerotic heart disease of native coronary artery without angina pectoris; N28.9 Disorder of kidney and ureter, unspecified; Z88.8 Allergy status to other drugs, medicaments and biological substances; Z79.1 Long term (current) use of non-steroidal anti-inflammatories (NSAID); Z79.899 Other long term (current) drug therapy
CPT/HCPCS: 71045; 99283

== ENCOUNTER 2024-03-18 16:03 | Inpatient (IN) | payer OTHER ==
[~2024-03-18] VITALS: Ht 162.6 cm; Wt 45.4 kg
[~2024-03-18 16:03] MED LIST changes: +AZIT250T4 PO
[2024-03-18 16:11] VITALS: BP 100/72; PULSE 84; RESP 16; TEMP 97.3; O2SAT 97
[2024-03-18] MEDS: ONDANSETRON 4 MG/2 ML VIAL IVP ONE (16:45)
[2024-03-18] MEDS ORDERED: ONDANSETRON 4 MG/2 ML VIAL ONE (17:53)
[2024-03-18] MEDS ORDERED: MORPHINE SULFATE 4 MG/ML SYR ONE (17:53)
[2024-03-18 17:55] LABS: BASOPHILS % (AUTO) 0.3 % (0.0-2.0); EOSINOPHILS % (AUTO) 0.6 % (0.0-4.0); HEMATOCRIT 30.6 % (36-48); HEMOGLOBIN 10.7 g/dL (12.0-16.0); LYMPHOCYTES # (AUTO) 1.7 K/uL (2.5-16.5); LYMPHOCYTES % (AUTO) 44.9 % (20.5-51.1); MEAN CORPUSCULAR HEMOGLOBIN 33 pg (27-31); MEAN CORPUSCULAR HGB CONC 35 g/dL (33-37); MEAN CORPUSCULAR VOLUME 94.7 fL (80-94); MONOCYTES # (AUTO) 0.2 K/uL (0.8-1.0); MONOCYTES % (AUTO) 5.1 % (1.7-9.3); NEUTROPHILS # (AUTO) 1.8 K/uL (1.8-7.7); NEUTROPHILS % (AUTO) 49.1 % (42.2-75.2); PLATELET COUNT (AUTO) 331 K/uL (140-450); RED BLOOD CELL COUNT(AUTO) 3.23 MIL/uL (4.20-5.40); RED CELL DISTRIBUTION WIDTH 15.5 % (11.6-13.7); WHITE BLOOD COUNT (AUTO) 3.7 K/uL (4.8-10.8)
[2024-03-18] MEDS: MORPHINE SULFATE 4 MG/ML SYR IVP ONE ×2 (18:00→20:34)
[2024-03-18] MEDS: NACL 0.9% 1,000 ML IV SCH (18:00)
[2024-03-18 18:13] LABS: ANION GAP 16.2 (8-16); CALCIUM 8.8 mg/dL (8.5-10.1); CARBON DIOXIDE 19.2 mmol/L (21-32); CREATININE 0.6 mg/dL (0.6-1.3); POTASSIUM 3.4 mmol/L (3.5-5.1)
[2024-03-18 18:16] LABS: ALBUMIN 3.6 g/dL (3.4-5.0); BILIRUBIN,DIRECT 0.1 mg/dL (0.0-0.3); TOTAL BILIRUBIN 0.2 mg/dL (0.0-1.0); TOTAL PROTEIN, SERUM 7.5 g/dL (6.4-8.2)
[2024-03-18] MEDS ORDERED: POLYETHYLENE GLYCOL 17 GM/PKT PO PRN (19:30)
[2024-03-18] MEDS ORDERED: ACETAMINOPHEN 325 MG TAB PO PRN (19:30)
[2024-03-18] MEDS ORDERED: MAG SULF 2000 MG/WATER PREMIX 50 ML IV PRN (19:30)
[2024-03-18] MEDS ORDERED: HYDROcodone/APAP 5/325 MG 1 TAB TAB PO PRN (19:30)
[2024-03-18] MEDS: ONDANSETRON 4 MG/2 ML VIAL IVP PRN (20:34)
[2024-03-18] MEDS: diphenhydrAMINE 50 MG/ML VIAL IVP ONE (20:41)
[2024-03-18] MEDS ORDERED: ACET-2619 PO (21:34)
[2024-03-18] MEDS ORDERED: HYDR10TA1 PO (21:34)
[2024-03-18] MEDS ORDERED: TOPI50TA PO (21:34)
[2024-03-18] MEDS ORDERED: LAM200 PO (21:34)
[2024-03-18] MEDS ORDERED: AMPH30CE PO (21:34)
[2024-03-18] MEDS ORDERED: GEMF600T5 PO (21:34)
[2024-03-18] MEDS ORDERED: SYN.05 PO (21:34)
[2024-03-18] MEDS ORDERED: UPAD30TA PO (21:34)
[2024-03-18] MEDS ORDERED: DIAZ-950 PO (21:34)
[2024-03-18 21:45] VITALS: PULSE 72; RESP 16; O2SAT 100
[2024-03-19] MEDS: POTASSIUM CHLORIDE 10 MEQ TABER PO PRN (00:48)
[2024-03-19] MEDS: NACL 0.9% 1,000 ML IV SCH (00:48)
[2024-03-19] MEDS: MORPHINE SULFATE 2 MG/ML SYR IVP PRN ×2 (00:50→13:38)
[2024-03-19 06:15] LABS: ALBUMIN 3.1 g/dL (3.4-5.0); ANION GAP 13.4 (8-16); CALCIUM 8.6 mg/dL (8.5-10.1); CARBON DIOXIDE 21.4 mmol/L (21-32); CREATININE 0.6 mg/dL (0.6-1.3); MAGNESIUM 2.4 mg/dL (1.8-2.4); PHOSPHORUS 3.8 mg/dL (2.5-4.9); POTASSIUM 3.8 mmol/L (3.5-5.1); TOTAL BILIRUBIN 0.2 mg/dL (0.0-1.0); TOTAL PROTEIN, SERUM 6.6 g/dL (6.4-8.2)
[2024-03-19 07:32] LABS: BASOPHILS % (AUTO) 0.3 % (0.0-2.0); EOSINOPHILS # (AUTO) 0.1 K/uL (0-0.4); EOSINOPHILS % (AUTO) 1.6 % (0.0-4.0); HEMATOCRIT 29.7 % (36-48); LYMPHOCYTES # (AUTO) 1.9 K/uL (2.5-16.5); LYMPHOCYTES % (AUTO) 39.6 % (20.5-51.1); MEAN CORPUSCULAR HEMOGLOBIN 33 pg (27-31); MEAN CORPUSCULAR HGB CONC 34 g/dL (33-37); MEAN CORPUSCULAR VOLUME 97.4 fL (80-94); MONOCYTES # (AUTO) 0.3 K/uL (0.8-1.0); MONOCYTES % (AUTO) 6.2 % (1.7-9.3); NEUTROPHILS # (AUTO) 2.5 K/uL (1.8-7.7); NEUTROPHILS % (AUTO) 52.3 % (42.2-75.2); PLATELET COUNT (AUTO) 257 K/uL (140-450); RED BLOOD CELL COUNT(AUTO) 3.05 MIL/uL (4.20-5.40); RED CELL DISTRIBUTION WIDTH 15.1 % (11.6-13.7); WHITE BLOOD COUNT (AUTO) 4.8 K/uL (4.8-10.8)
[2024-03-19 08:00] VITALS: BP 101/54; PULSE 70; RESP 18; TEMP 97.7; O2SAT 100
[2024-03-19] MEDS ORDERED: diazePAM 5 MG TAB PO PRN (13:30)
[2024-03-19] MEDS: PANTOPRAZOLE 40 MG INJ VIAL IVP SCH (14:35)
[2024-03-19 16:30] VITALS: BP 108/55; PULSE 81; RESP 18; TEMP 97.6; O2SAT 100
[2024-03-19 20:00] VITALS: PULSE 82; RESP 18; O2SAT 97
[2024-03-19] MEDS: TOPIRAMATE 25 MG TAB PO SCH (20:09)
[2024-03-19] MEDS: MELATONIN 3 MG TAB PO PRN (20:10)
[2024-03-20] VITALS: BP 102/66; PULSE 82; RESP 18; TEMP 97.4; O2SAT 97
[2024-03-20 00:55] LABS: APPEARANCE,URINE CLEAR (CLEAR); BILIRUBIN,URINE NEGATIVE (NEGATIVE); BLOOD, URINE TRACE-I (NEGATIVE); COLOR,URINE YELLOW (YELLOW); LEUKOCYTE ESTERASE ,URINE NEGATIVE (NEGATIVE); NITRITE, URINE NEGATIVE (NEGATIVE); PROTEIN,URINE NEGATIVE (NEGATIVE); UGLUCOSE NEGATIVE (NEGATIVE); UROBILINOGEN,URINE 0.2 EU/dL (0.2 - 1)
[2024-03-20 00:59] LABS: RBC,URINE 0-5 /HPF (0-5); WBC,URINE 0-5 /HPF (0-5)
[2024-03-20 01:00] LABS: BACTERIA,URINE 1+ /HPF (None Seen); MUCUS,URINE 1+ /LPF (None Seen); SQUAMOUS EPITHELIAL CELL,UR 0-3 (FEW) /LPF (0-3 (FEW))
[2024-03-20 06:56] LABS: BASOPHILS % (AUTO) 0.3 % (0.0-2.0); EOSINOPHILS # (AUTO) 0.1 K/uL (0-0.4); EOSINOPHILS % (AUTO) 2.1 % (0.0-4.0); HEMATOCRIT 27.2 % (36-48); HEMOGLOBIN 9.2 g/dL (12.0-16.0); LYMPHOCYTES # (AUTO) 1.5 K/uL (2.5-16.5); LYMPHOCYTES % (AUTO) 51.2 % (20.5-51.1); MEAN CORPUSCULAR HEMOGLOBIN 33 pg (27-31); MEAN CORPUSCULAR HGB CONC 34 g/dL (33-37); MEAN CORPUSCULAR VOLUME 96.8 fL (80-94); MONOCYTES # (AUTO) 0.2 K/uL (0.8-1.0); MONOCYTES % (AUTO) 6.3 % (1.7-9.3); NEUTROPHILS # (AUTO) 1.2 K/uL (1.8-7.7); NEUTROPHILS % (AUTO) 40.1 % (42.2-75.2); PLATELET COUNT (AUTO) 230 K/uL (140-450); RED BLOOD CELL COUNT(AUTO) 2.81 MIL/uL (4.20-5.40); RED CELL DISTRIBUTION WIDTH 15.3 % (11.6-13.7)
[2024-03-20 07:17] LABS: ALBUMIN 2.8 g/dL (3.4-5.0); ANION GAP 11.9 (8-16); CALCIUM 8.6 mg/dL (8.5-10.1); CARBON DIOXIDE 23.7 mmol/L (21-32); CREATININE 0.6 mg/dL (0.6-1.3); MAGNESIUM 2.3 mg/dL (1.8-2.4); PHOSPHORUS 4.6 mg/dL (2.5-4.9); POTASSIUM 3.6 mmol/L (3.5-5.1); TOTAL BILIRUBIN 0.1 mg/dL (0.0-1.0); TOTAL PROTEIN, SERUM 5.9 g/dL (6.4-8.2)
[2024-03-20 08:00] VITALS: BP 95/62; PULSE 65; PULSE 82; RESP 18; TEMP 97.6; O2SAT 100; O2SAT 97
[2024-03-20] MEDS: HYDROCORTISONE 10 MG TAB PO SCH (09:00)
[2024-03-20] MEDS: SERTRALINE 50 MG TAB PO SCH (09:53)
[2024-03-20] MEDS: LEVOTHYROXINE 0.05 MG TAB PO SCH (09:53)
[2024-03-20] MEDS: fentaNYL citrate 0.05 MG/ML VIAL ONE (13:20)
[2024-03-20] MEDS: MIDAZOLAM 5 MG/5 ML VIAL ONE (13:20)
[2024-03-20] MEDS: LIDOCAINE 2% 100 MG/5 ML UJET TP ONE (13:21)
[2024-03-20] MEDS: fentaNYL citrate 0.05 MG/ML VIAL IVP ONE (13:29)
[2024-03-20] MEDS ORDERED: LIDOCAINE 2% 100 MG/5 ML UJET TP SCH (14:15)
[2024-03-20] MEDS: MIDAZOLAM 2 MG/2 ML VIAL IVP ONE (14:26)
[2024-03-20] MEDS ORDERED: MIDAZOLAM 2 MG/2 ML VIAL IVP SCH (14:30)
[2024-03-20] MEDS ORDERED: fentaNYL citrate 0.05 MG/ML VIAL IVP SCH (14:31)
[2024-03-20 16:00] VITALS: BP 115/59; PULSE 72; RESP 18; TEMP 97.9; O2SAT 100
[2024-03-20 20:00] VITALS: PULSE 82; RESP 18; O2SAT 96
[2024-03-21] VITALS: BP 109/67; PULSE 82; RESP 18; TEMP 97.3; O2SAT 96
[2024-03-21 07:20] LABS: BASOPHILS % (AUTO) 0.3 % (0.0-2.0); EOSINOPHILS # (AUTO) 0.1 K/uL (0-0.4); EOSINOPHILS % (AUTO) 1.5 % (0.0-4.0); HEMATOCRIT 27.8 % (36-48); HEMOGLOBIN 9.3 g/dL (12.0-16.0); LYMPHOCYTES # (AUTO) 1.6 K/uL (2.5-16.5); MEAN CORPUSCULAR HEMOGLOBIN 33 pg (27-31); MEAN CORPUSCULAR HGB CONC 34 g/dL (33-37); MEAN CORPUSCULAR VOLUME 97.2 fL (80-94); MONOCYTES # (AUTO) 0.2 K/uL (0.8-1.0); MONOCYTES % (AUTO) 4.5 % (1.7-9.3); NEUTROPHILS % (AUTO) 52.7 % (42.2-75.2); PLATELET COUNT (AUTO) 235 K/uL (140-450); RED BLOOD CELL COUNT(AUTO) 2.87 MIL/uL (4.20-5.40); RED CELL DISTRIBUTION WIDTH 15.8 % (11.6-13.7); WHITE BLOOD COUNT (AUTO) 3.9 K/uL (4.8-10.8)
[2024-03-21 07:39] LABS: ALBUMIN 2.6 g/dL (3.4-5.0); ANION GAP 11.6 (8-16); CALCIUM 8.5 mg/dL (8.5-10.1); CARBON DIOXIDE 24.4 mmol/L (21-32); CREATININE 0.6 mg/dL (0.6-1.3); MAGNESIUM 2.1 mg/dL (1.8-2.4); PHOSPHORUS 4.2 mg/dL (2.5-4.9); TOTAL BILIRUBIN 0.1 mg/dL (0.0-1.0); TOTAL PROTEIN, SERUM 5.9 g/dL (6.4-8.2)
[2024-03-21 08:00] VITALS: BP 103/69; PULSE 68; RESP 18; TEMP 96.7; O2SAT 100
[2024-03-21 08:58] VITALS: PULSE 78; RESP 20; O2SAT 99
[2024-03-21 14:09] VITALS: BP 103/69; PULSE 78; RESP 20; TEMP 96.7
== END 2024-03-21 14:30 | disposition home or self-care (01) | DRG 392 ==
LOC: MED 16:03 → MTU 19:34
PROVIDERS: ADMIT Family Medicine; ATTEND Family Medicine
PROC: 0DJD8ZZ Inspection of Lower Intestinal Tract, Via Natural or Artificial Opening Endoscopic (ICD-10-PCS; principal; 2024-03-20 16:40)
PROC: 0DJ08ZZ Inspection of Upper Intestinal Tract, Via Natural or Artificial Opening Endoscopic (ICD-10-PCS; 2024-03-20 16:40)
DX: K52.9 Noninfective gastroenteritis and colitis, unspecified (principal); E27.1 Primary adrenocortical insufficiency; K92.0 Hematemesis; K50.90 Crohn's disease, unspecified, without complications; Z68.1 Body mass index [BMI] 19.9 or less, adult; E44.1 Mild protein-calorie malnutrition; F98.8 Other specified behavioral and emotional disorders with onset usually occurring in childhood and adolescence; R63.4 Abnormal weight loss; D53.9 Nutritional anemia, unspecified; Z79.899 Other long term (current) drug therapy; Z86.711 Personal history of pulmonary embolism
CPT/HCPCS: 36415; 71045; 80048; 80053; 80076; 81001; 81025; 82150; 83690; 83735; 84100; 85025; 85651; 86140; 87081; 96361; 96374; 96375; 96376; 99285; C9113; J1200; J1644; J2250; J2270; J2405; J3010; Q9967

== ENCOUNTER 2024-04-26 20:30 | Emergency (ER) | payer OTHER ==
[~2024-04-26] VITALS: Ht 160 cm; Wt 45.8 kg
[~2024-04-26 20:30] MED LIST changes: -AZIT250T4 PO; +GEMF600T5 PO; +HYDR10TA1 PO; +LAM200 PO; -ONDA-188 PO; -ONDA-188 SL; +SYN.05 PO; +UPAD30TA PO
[2024-04-26 20:35] VITALS: BP 119/91; PULSE 112; RESP 22; TEMP 98; O2SAT 99
[2024-04-26] MEDS: ACETAMINOPHEN EXTRA STRENGTH 500 MG TAB PO ONE (21:10)
[2024-04-26] MEDS: PROCHLORPERAZINE 10 MG/2 ML VIAL IVP ONE (21:44)
[2024-04-26] MEDS: NACL 0.9% 1,000 ML IV ONE (21:44)
[2024-04-26] MEDS: diphenhydrAMINE 50 MG/ML VIAL IVP ONE (21:45)
[2024-04-26] MEDS: MORPHINE SULFATE 2 MG/ML SYR IVP STA (21:53)
[2024-04-26 22:17] LABS: BASOPHILS % (AUTO) 0.2 % (0.0-2.0); EOSINOPHILS % (AUTO) 0.4 % (0.0-4.0); HEMATOCRIT 38.3 % (36-48); HEMOGLOBIN 12.6 g/dL (12.0-16.0); LYMPHOCYTES # (AUTO) 1.9 K/uL (2.5-16.5); LYMPHOCYTES % (AUTO) 52.5 % (20.5-51.1); MEAN CORPUSCULAR HEMOGLOBIN 31 pg (27-31); MEAN CORPUSCULAR HGB CONC 33 g/dL (33-37); MEAN CORPUSCULAR VOLUME 94.2 fL (80-94); MONOCYTES # (AUTO) 0.2 K/uL (0.8-1.0); MONOCYTES % (AUTO) 5.6 % (1.7-9.3); NEUTROPHILS # (AUTO) 1.5 K/uL (1.8-7.7); NEUTROPHILS % (AUTO) 41.3 % (42.2-75.2); PLATELET COUNT (AUTO) 383 K/uL (140-450); RED BLOOD CELL COUNT(AUTO) 4.07 MIL/uL (4.20-5.40); WHITE BLOOD COUNT (AUTO) 3.6 K/uL (4.8-10.8)
[2024-04-26 22:45] LABS: ALBUMIN 4.7 g/dL (3.4-5.0); ANION GAP 16.3 (8-16); CALCIUM 9.9 mg/dL (8.5-10.1); CARBON DIOXIDE 21.8 mmol/L (21-32); CREATININE 0.8 mg/dL (0.6-1.3); MAGNESIUM 2.7 mg/dL (1.8-2.4); POTASSIUM 3.1 mmol/L (3.5-5.1); TOTAL BILIRUBIN 0.2 mg/dL (0.0-1.0); TOTAL PROTEIN, SERUM 9.5 g/dL (6.4-8.2)
[2024-04-26] MEDS ORDERED: HYDR25CA1 PO (23:10)
[2024-04-26] MEDS ORDERED: PROC-87 PO (23:10)
[2024-04-26] MEDS ORDERED: ACET-10509 PO (23:10)
[2024-04-26] MEDS: POTASSIUM CHLORIDE 10 MEQ TABER PO ONE (23:19)
[2024-04-26 23:30] VITALS: BP 136/99; PULSE 89; RESP 18; TEMP 98; O2SAT 100
== END 2024-04-26 23:30 | disposition home or self-care (01) ==
LOC: MED 20:30
DX: G43.909 Migraine, unspecified, not intractable, without status migrainosus (principal); E87.6 Hypokalemia; K21.9 Gastro-esophageal reflux disease without esophagitis; E03.9 Hypothyroidism, unspecified; Z86.718 Personal history of other venous thrombosis and embolism; Z79.899 Other long term (current) drug therapy; Z79.01 Long term (current) use of anticoagulants; Z88.6 Allergy status to analgesic agent; Z88.8 Allergy status to other drugs, medicaments and biological substances; Z88.1 Allergy status to other antibiotic agents
CPT/HCPCS: 36415; 80053; 81002; 81025; 83735; 85025; 96361; 96374; 96375; 99284; J0780; J1200; J2270; J7030